=== PATIENT | male | born 1995 | race Caucasian/White ===

== ENCOUNTER 2020-09-21 17:38 | Emergency (ER) | payer OTHER, BC ==
[~2020-09-21] VITALS: Ht 167.6 cm; Wt 70.0 kg
[2020-09-21] MEDS ORDERED: IV RINGERS,LACTATED 500ML 500 ML IV ONE (17:45)
[2020-09-21] MEDS ORDERED: ONDANSETRON PF 4 MG/2 ML VIAL. IVP ONE (17:45)
[2020-09-21] MEDS ORDERED: fentaNYL PF VIAL 100 MCG/2 ML VIAL IVP ONE (17:45)
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
[2020-09-21 18:00] LABS: BASO % 0 % (0-3); EOS # 0.1 x10^3/uL (0.0-0.7); EOS % 1 % (0-3); HEMOGLOBIN 16.3 g/dL (13.0-17.5); LYMPH # 2.8 x10^3/uL (1.0-4.8); LYMPH % 24 % (24-48); MEAN CORPUSCULAR HEMOGLOBIN 31 pg (25-35); MEAN CORPUSCULAR HGB CONC 35 g/dL (31-37); MEAN CORPUSCULAR VOLUME 89 fL (79-100); MONO # 0.9 x10^3/uL (0.0-1.1); MONO % 8 % (0-9); NEUT # 7.9 x10^3/uL (1.8-7.7); NEUT % 67 % (31-73); PLATELET COUNT 255 x10^3/uL (140-400); RED BLOOD COUNT 5.27 x10^6/uL (4.30-5.70); RED CELL DISTRIBUTION WIDTH 13.1 % (11.5-14.5); WHITE BLOOD COUNT 11.7 x10^3/uL (4.0-11.0)
[2020-09-21 18:10] LABS: CALCIUM 9.3 mg/dL (8.5-10.1); CREATININE 0.8 mg/dL (0.7-1.3); GFR 118.8; POTASSIUM 3.8 mmol/L (3.5-5.1)
[2020-09-21 18:16] LABS: ALBUMIN 4.3 g/dL (3.4-5.0); ALBUMIN/GLOBULIN RATIO 1.4 (1.0-1.7); TOTAL BILIRUBIN 0.4 mg/dL (0.2-1.0); TOTAL PROTEIN 7.4 g/dL (6.4-8.2)
[2020-09-21] MEDS ORDERED: HYDROmorphone 2 MG/ML VIAL IVP ONE ×5 (18:30→22:45)
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
[2020-09-21] MEDS ORDERED: CONTRAST GIVEN. MC PRN (19:00)
[2020-09-21] MEDS ORDERED: PROPOFOL 10 MG/ML (20ML) VIAL. IV ONE (19:00)
[2020-09-21] MEDS ORDERED: IOHEXOL 300 MG/ML 100ML VIAL. IV ONE (19:00)
[2020-09-21 19:05] VITALS: BP 122/77
--- NOTE | 2020-09-21 19:35 | RAD ---
2 views the right knee dated 09/21/2020. Comparison made to study dated same day. CLINICAL INDICATION: Post reduction of knee dislocation. FINDINGS: 2 views of the right knee show an oblique vertically oriented fracture through the lateral femoral co ndyle extending to the intercondylar region, mildly displaced. The proximal tibia is intact. The prox imal fibula and patella are intact. There is a moderate size joint effusion with gas density in the j oint space. Alignment anatomic. IMPRESSION: 1. Mildly displaced obliquely oriented fracture through the lateral femoral condyle with intra-articu lar extension to the intercondylar region. 2. Joint effusion with gas density in the joint space. 3. Diffuse soft tissue swelling. Electronically signed by: Adam Olguin MD (09/21/2020 7:32 PM) [facility]
[2020-09-21] MEDS ORDERED: IOHEXOL 350 MG/ML 100 ML VIAL. IV ONE (20:00)
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
[2020-09-21 21:20] LABS: BILIRUBIN,URINE NEGATIVE (NEG); CLARITY,URINE CLEAR; COLOR,URINE YELLOW; NITRITE,URINE NEGATIVE (NEG); PH,URINE 7.5 (<5.0-8.0); PROTEIN,URINE NEGATIVE (NEG-TRACE)
[2020-09-21 21:31] LABS: BACTERIA,URINE 0 /HPF (0-FEW); RBC,URINE 0 /HPF (0-2); WBC,URINE 0 /HPF (0-4)
[2020-09-21 21:45] LABS: BARBITURATES NEG (NEG); BENZODIAZEPINES NEG (NEG); CANNABINOIDS NEG (NEG); COCAINE NEG (NEG); METHADONE NEG (NEG); OPIATES POS (NEG); PHENCYCLIDINE NEG (NEG)
[2020-09-21 21:47] LABS: AMPHETAMINE/METHAMPHETAMINE NEG (NEG)
[2020-09-21 23:20] VITALS: BP 138/73
== END 2020-09-21 23:43 ==
LOC: ER 17:38
DX: S83.004A Unspecified dislocation of right patella, initial encounter (principal); Z20.822 Contact with and (suspected) exposure to COVID-19; S92.251A Displaced fracture of navicular [scaphoid] of right foot, initial encounter for closed fracture; S72.91XB Unspecified fracture of right femur, initial encounter for open fracture type I or II; S52.502A Unspecified fracture of the lower end of left radius, initial encounter for closed fracture; S30.811A Abrasion of abdominal wall, initial encounter; S90.511A Abrasion, right ankle, initial encounter; M54.2 Cervicalgia; V29.9XXA Motorcycle rider (driver) (passenger) injured in unspecified traffic accident, initial encounter; Y92.410 Unspecified street and highway as the place of occurrence of the external cause; Y93.89 Activity, other specified; Y99.8 Other external cause status
CPT/HCPCS: 27560; 29125; 36415; 70450; 70491; 71045; 71260; 72125; 73100; 73560; 73562; 73590; 73706; 74177; 80053; 80307; 81001; 85025; 87426; 96365; 96366; 96375; 96376; 99285; G0480; J0690; J1170; J2405; J2704; J3010; J7120; Q9967; U0003